=== PATIENT | male | born 1995 | race Caucasian/White ===

== ENCOUNTER 2019-12-10 06:00 | Emergency (ER) | payer BC, MEDICAID ==
[~2019-12-10] VITALS: Ht 172.7 cm; Wt 70.3 kg
--- NOTE | 2019-12-10 06:00 | NUR ---
PT BIBA, PREBOOK. [place] [employer] WITH PT
[2019-12-10 06:13] VITALS: BP 113/68
[2019-12-10 06:20] VITALS: BP 113/68
--- NOTE | 2019-12-10 06:21 | NUR ---
PATIENT [facility] POLICE DEPT. PATIENT EXAMINED BY DR. ANN. PATIENT MEDICALLY CLEARED AND RELEASED IN CUSTODY IN STABLE CONDITION. ORIGINAL PRE-BOOK FORM GIVEN TO OFFICER [employer].
--- NOTE | 2019-12-10 06:22 | NUR ---
Patient discharged with v/s stable. Written and verbal after care instructions given and explained. Patient verbalized understanding. Police with in custody. All questions addressed prior to discharge. Advised to follow up with PMD.
== END 2019-12-10 06:22 ==
LOC: MED 06:00
DX: Z04.1 Encounter for examination and observation following transport accident (principal); Z02.89 Encounter for other administrative examinations
CPT/HCPCS: 99283

== ENCOUNTER 2023-07-07 22:04 | Emergency (ER) | payer BC, MEDICAID, OTHER ==
[~2023-07-07] VITALS: Ht 172.7 cm; Wt 72.6 kg
[2023-07-07 22:15] VITALS: BP 137/76; PULSE 89; RESP 16; TEMP 97.5; O2SAT 99
== END 2023-07-07 22:46 | disposition home or self-care (01) ==
LOC: MED 22:04
DX: S01.01XA Laceration without foreign body of scalp, initial encounter (principal); F12.90 Cannabis use, unspecified, uncomplicated; W22.8XXA Striking against or struck by other objects, initial encounter; Y93.72 Activity, wrestling; Y92.89 Other specified places as the place of occurrence of the external cause; Y99.8 Other external cause status
CPT/HCPCS: 99282